=== PATIENT | female | born 2005 | race Caucasian/White ===

== ENCOUNTER 2023-07-08 13:39 | Emergency (ER) | payer OTHER ==
[2023-07-08 14:10] VITALS: RESP 18; TEMP 96.6
[2023-07-08] MEDS ORDERED: Reglan 10 MG/2 ML IV ONE (14:13)
[2023-07-08] MEDS ORDERED: BENADRYL 50 MG/ML IV ONE (14:13)
[2023-07-08] MEDS ORDERED: Sodium Chloride 0.9% 1000 ML 1,000 ML IV STA (14:13)
[2023-07-08] MEDS ORDERED: TORAdol 30 mg Injection IV ONE (14:13)
[2023-07-08] MEDS ORDERED: TYLENOL 325 MG PO ONE (14:13)
--- NOTE | 2023-07-08 14:19 | ERPHSYRPT ---
- History of Present Illness Time Seen by Provider: 07/08/23 13:44 Source: patient Exam Limitations: no limitations Patient Subjective Stated Complaint: pt states that she was getting a hiatta scan done today. 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 Patient reports she was getting HIDA scan earlier outpatient and started to have some upper abdominal pain followed by 3-4 episodes of nonprojectile, nonbilious vomiting. She started to feel dizzy lightheaded afterwards. She was walking out of the hospital and started to have moderate intensity sharp headache all over the especially on the left side. She does have history of migraines and had a few episodes similar to this in the past as well. She denies any focal numbness tingling or weakness but does report feeling transient numbness on the left side of the face earlier which is improved now. No difficulty speech or visual disturbance reported. Headache is more with bright light and better with being in a dark room. Denies any neck pain, fever or chills/sick contact. Allergies/Adverse Reactions: No Known Drug Allergies Allergy (Unverified 07/08/23 13:52) Home Medications: Levothyroxine Sodium 150 mcg PO DAILY 07/08/23 [History] Hx Tetanus, Diphtheria Vaccination/Date Given: Yes Hx Influenza Vaccination/Date Given: Yes Hx Pneumococcal Vaccination/Date Given: No Travel Risk - International Travel Have you traveled outside of the country in past 3 weeks: No - Coronavirus Screening Are you exhibiting any of the following symptoms?: No Close contact with a COVID-19 positive Pt in past 14-21 Days: No - Vaccine Status Have you recieved a Covid-19 vaccination: Yes 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 - Vaccination Dates Dates if Unknown: 2020 - Review of Systems Constitutional: Fatigue, Weakness Eyes: No Symptoms Ears, Nose, & Throat: No Symptoms Respiratory: No Symptoms Cardiac: No Symptoms Abdominal/Gastrointestinal: Abdominal Pain, Nausea, Vomiting Genitourinary Symptoms: No Symptoms Musculoskeletal: No Symptoms Skin: No Symptoms Neurological: Headache Endocrine: No Symptoms Hematologic/Lymphatic: No Symptoms - Past Medical History Pertinent Past Medical History: Yes Neurological History: No Pertinent History ENT History: No Pertinent History Cardiac History: No Pertinent History Respiratory History: Asthma Endocrine Medical History: Hypothyroidism Musculoskeletal History: No Pertinent History GI Medical History: No Pertinent History History: No Pertinent History Psycho-Social History: No Pertinent History Female Reproductive Disorders: No Pertinent History - Past Surgical History Past Surgical History: Yes Musculoskeletal: Other - Social History Smoking Status: Never smoker Exposure to second hand smoke: No Drug Use: none Patient Lives Alone: Yes - Female History Hx Now: (unkn) - Nursing Vital Signs Nursing Vital Signs: Initial Vital Signs Temperature 96.6 F 07/08/23 13:54 Pulse Rate 71 07/08/23 13:54 Respiratory Rate 18 07/08/23 13:54 Blood Pressure 120/77 07/08/23 13:54 O2 Sat by Pulse Oximetry 100 07/08/23 13:54 Pain Scale Pain Intensity 6 - Physical Exam General Appearance: no apparent distress, alert Eye Exam: PERRL/EOMI Ears, Nose, Throat Exam: normal ENT inspection Neck Exam: normal inspection, non-tender, supple, full range of motion Respiratory Exam: normal breath sounds, lungs clear Cardiovascular Exam: regular rate/rhythm, normal heart sounds Gastrointestinal/Abdominal Exam: soft, normal bowel sounds, No tenderness Extremity Exam: normal inspection, normal range of motion Mental Status Exam: alert, oriented x 3, 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 Exam: normal hearing, normal speech, PERRL Coordination/Gait Exam: normal finger to nose Motor/Sensory Exam: no motor deficit, no sensory deficit, no pronator drift, negative Babinski's sign DTR Exam: bicep (R): 2+, bicep (L): 2+, knee (R): 2+, knee (L): 2+ Skin Exam: normal color SpO2 Interpretation: normal SpO2: 100 O2 Delivery: Room Air Ordered Tests: Active Orders 24 hr Category Date Time Status IV Insertion STAT Care 07/08/23 14:13 Active HEAD WITHOUT CONTRAST [CT] Stat Exams 07/08/23 14:14 Completed CBC W DIFF Stat Lab 07/08/23 14:25 Completed CMP Stat Lab 07/08/23 14:25 Completed CULTURE,URINE Stat Lab 07/08/23 15:59 Received HCG QUALITATIVE, SERUM Stat Lab 07/08/23 14:25 Completed LIPASE Stat Lab 07/08/23 14:25 Completed UA W/RFX UR CULTURE Stat Lab 07/08/23 15:59 Completed Medication Summary Discontinued Medications Generic Name Dose Route Start Last Admin Trade Name Frank PRN Reason Stop Dose Admin Acetaminophen 975 mg 07/08/23 14:13 07/08/23 14:43 Acetaminophen 325 Mg Tablet PO 07/08/23 14:14 975 mg STAT ONE Administration Acetaminophen Confirm 07/08/23 14:39 Acetaminophen 325 Mg Tablet Administered 07/08/23 14:40 Dose 975 mg .ROUTE .STK-MED ONE Acetaminophen Confirm 07/08/23 14:48 Acetaminophen 325 Mg Tablet Administered 07/08/23 14:49 Dose 975 mg .ROUTE .STK-MED ONE Cephalexin HCl 500 mg 07/08/23 16:45 Cephalexin Mh500 Mg Capsule PO 07/08/23 16:46 STAT ONE Cephalexin HCl Confirm 07/08/23 16:52 Cephalexin Mh500 Mg Capsule Administered 07/08/23 16:53 Dose 500 mg .ROUTE .STK-MED ONE Diphenhydramine HCl 25 mg 07/08/23 14:13 07/08/23 14:43 Diphenhydramine Hcl 50 Mg/Ml Vial IV 07/08/23 14:14 25 mg STAT ONE Administration Diphenhydramine HCl Confirm 07/08/23 14:38 Diphenhydramine Hcl 50 Mg/Ml Vial Administered 07/08/23 14:39 Dose 50 mg .ROUTE .STK-MED ONE Sodium Chloride 1,000 mls @ 999 mls/hr 07/08/23 14:13 07/08/23 15:45 Sodium Chloride 0.9% 1000 Ml IV 07/08/23 15:13 Infused .Q1H1M STA Infusion Sodium Chloride Confirm 07/08/23 14:39 Sodium Chloride 0.9% 1000 Ml Administered 07/08/23 14:40 Dose 1,000 mls @ ud .ROUTE .STK-MED ONE Ketorolac Tromethamine 30 mg 07/08/23 14:13 07/08/23 14:43 Ketorolac Tromethamine 30 Mg/Ml Inj IV 07/08/23 14:14 30 mg STAT ONE Administration Ketorolac Tromethamine Confirm 07/08/23 14:38 Ketorolac Tromethamine 30 Mg/Ml Inj Administered 07/08/23 14:39 Dose 30 mg .ROUTE .STK-MED ONE Metoclopramide HCl 10 mg 07/08/23 14:13 07/08/23 14:43 Metoclopramide Hcl 10 Mg/2 Ml Vial IV 07/08/23 14:14 10 mg STAT ONE Administration Metoclopramide HCl Confirm 07/08/23 14:39 Metoclopramide Hcl 10 Mg/2 Ml Vial Administered 07/08/23 14:40 Dose 10 mg .ROUTE .STK-MED ONE Lab/Rad Data: Laboratory Result Diagrams 07/08/23 14:25 07/08/23 14:25 Laboratory Results 07/08/23 07/08/23 07/08/23 Range/Units 15:59 14:25 14:25 WBC (4.0-10.5) x10^3/uL RBC (4.1-5.4) x10^6/uL Hgb (12.0-16.0) g/dL Hct (35-47) % MCV (78-100) fL MCH (26-32) pg MCHC (32-36) g/dL RDW (11.5-14.0) % Plt Count (150-450) x10^3/uL MPV (7.5-11.0) fL Gran % (36.0-66.0) % Immature Gran % (Auto) (0.00-0.4) % Nucleat RBC Rel Count (0.00-0.1) % Eos # (Auto) (0-0.5) x10^3/uL Immature Gran # (Auto) (0.00-0.03) x10^3u/L Absolute Lymphs (auto) (1.0-4.6) x10^3/uL Absolute Monos (auto) (0.0-1.3) x10^3/uL Absolute Nucleated RBC (0.00-0.01) x10^3u/L Lymphocytes % (24.0-44.0) % Monocytes % (0.0-12.0) % Eosinophils % (0.00-5.0) % Basophils % (0.0-0.4) % Absolute Granulocytes (1.4-6.9) x10^3/uL Basophils # (0-0.4) x10^3/uL Sodium 137 (137-145) mmol/L Potassium 3.8 (3.5-5.1) mmol/L Chloride 107 (98-107) mmol/L Carbon Dioxide 24 (22-30) mmol/L Anion Gap 8.7 (5-15) MEQ/L BUN 10 (7-17) mg/dL Creatinine 0.67 (0.52-1.04) mg/dL Estimated GFR 128.2 ML/MIN Glucose 95 (74-106) mg/dL Calcium 8.8 (8.4-10.2) mg/dL Total Bilirubin 0.50 (0.2-1.3) mg/dL AST 62 H (14-36) U/L ALT 37 H (0-35) U/L Alkaline Phosphatase 54 (38-126) U/L Serum Total Protein 7.5 (6.3-8.2) g/dL Albumin 4.0 (3.5-5.0) g/dL Lipase 56 (23-300) U/L Serum HCG, Qual NEGATIVE (NEGATIVE) Urine Color Yellow (Yellow) Urine Appearance Clear (Clear) Urine pH 6.0 (4.6-8.0) Ur Specific [place] 1.020 (1.005-1.030) Urine Protein Negative (Negative) Urine Glucose (UA) Negative (Negative) mg/dL Urine Ketones Trace A (Negative) Urine Blood Large A (Negative) Urine Nitrite Negative (Negative) Urine Bilirubin Negative (Negative) Urine Urobilinogen 0.2 (0.2) mg/dL Ur Leukocyte Esterase Trace A (Negative) U Hyaline Cast (Auto) NONE SEEN (0-2) /LPF Urine Microscopic RBC >100 A (0-5) /HPF Urine Microscopic WBC 6-10 A (0-5) /HPF Ur Epithelial Cells Rare (None Seen) /HPF Urine Bacteria None Seen (None Seen) /HPF Urine Culture Reflexed YES (NO) 07/08/23 Range/Units 14:25 WBC 7.0 (4.0-10.5) x10^3/uL RBC 3.95 L (4.1-5.4) x10^6/uL Hgb 9.2 L (12.0-16.0) g/dL Hct 31.2 L (35-47) % MCV 79.0 (78-100) fL MCH 23.3 L (26-32) pg MCHC 29.5 L (32-36) g/dL RDW 16.5 H (11.5-14.0) % Plt Count 283 (150-450) x10^3/uL MPV 10.1 (7.5-11.0) fL Gran % 78.0 H (36.0-66.0) % Immature Gran % (Auto) 0.1 (0.00-0.4) % Nucleat RBC Rel Count 0.0 (0.00-0.1) % Eos # (Auto) 0.04 (0-0.5) x10^3/uL Immature Gran # (Auto) 0.01 (0.00-0.03) x10^3u/L Absolute Lymphs (auto) 1.12 (1.0-4.6) x10^3/uL Absolute Monos (auto) 0.34 (0.0-1.3) x10^3/uL Absolute Nucleated RBC 0.00 (0.00-0.01) x10^3u/L Lymphocytes % 16.0 L (24.0-44.0) % Monocytes % 4.9 (0.0-12.0) % Eosinophils % 0.6 (0.00-5.0) % Basophils % 0.4 (0.0-0.4) % Absolute Granulocytes 5.47 (1.4-6.9) x10^3/uL Basophils # 0.03 (0-0.4) x10^3/uL Sodium (137-145) mmol/L Potassium (3.5-5.1) mmol/L Chloride (98-107) mmol/L Carbon Dioxide (22-30) mmol/L Anion Gap (5-15) MEQ/L BUN (7-17) mg/dL Creatinine (0.52-1.04) mg/dL Estimated GFR ML/MIN Glucose (74-106) mg/dL Calcium (8.4-10.2) mg/dL Total Bilirubin (0.2-1.3) mg/dL AST (14-36) U/L ALT (0-35) U/L Alkaline Phosphatase (38-126) U/L Serum Total Protein (6.3-8.2) g/dL Albumin (3.5-5.0) g/dL Lipase (23-300) U/L Serum HCG, Qual (NEGATIVE) Urine Color (Yellow) Urine Appearance (Clear) Urine pH (4.6-8.0) Ur Specific [place] (1.005-1.030) Urine Protein (Negative) Urine Glucose (UA) (Negative) mg/dL Urine Ketones (Negative) Urine Blood (Negative) Urine Nitrite (Negative) Urine Bilirubin (Negative) Urine Urobilinogen (0.2) mg/dL Ur Leukocyte Esterase (Negative) U Hyaline Cast (Auto) (0-2) /LPF Urine Microscopic RBC (0-5) /HPF Urine Microscopic WBC (0-5) /HPF Ur Epithelial Cells (None Seen) /HPF Urine Bacteria (None Seen) /HPF Urine Culture Reflexed (NO) - Progress Progress: improved, re-examined Air Movement: good Progress Note: 07/08/23 16:54 18 years old is evaluated for headache with dizziness and nausea vomiting after she was getting HIDA scan outpatient. Neuroexam remained nonfocal throughout stay in the ER. She is given migraine cocktail along with fluid bolus, on reevaluation her symptoms are completely resolved. CT head is obtained which is negative. Baseline workup showed chronic anemia with a hemoglobin of 9.2 which is a little worse than before it was 10. Mildly elevated liver enzymes and some element of UTI, started on Keflex. Patient does have history of migraine and this was probably migraine presentation triggered from HIDA scan related to dye ingestion. She is advised to follow-up with her primary care. This point I do not think she needs any other workup and is stable for discharge. 07/08/23 16:56 Blood Culture(s) Obtained: No Antibiotics given: No Counseled pt/family regarding: lab results, diagnosis, need for follow-up, rad results Medical Desision Making - Diagnostic Testing Diagnostic test were ordered, analyzed, and reviewed by me: Yes Radiological Interpretation: Reviewed by me - Risk of complications The pt has a mod risk of morbidity or mortality based on: Need for prescription drug management - Departure Departure Disposition: Home Clinical Impression: Migraine, UTI (urinary tract infection) Condition: Stable Critical Care Time: No Referrals: DOCTOR,NO FAMILY [Primary Care Provider] - Follow up with PCP 1 day Instructions: Headache, Adult (DC) Additional Instructions: Take Tylenol/ibuprofen as needed. Follow-up with your primary care for reevaluation. Return to ER for intractable headache/vomiting/fever chills etc. Prescriptions: Cephalexin Mh 500 mg [Keflex 500 mg] 500 mg PO TID #21 cap
[2023-07-08 14:33] LABS: Absolute Neutrophil Ct (ANC) 5.47 x10^3/uL (1.4-6.9); BASOPHIL % 0.4 % (0.0-0.4); Basophil (Absolute #) 0.03 x10^3/uL (0-0.4); Eosinophil % 0.6 % (0.00-5.0); Eosinophil (Absolute #) 0.04 x10^3/uL (0-0.5); Hematocrit 31.2 % (35-47); Hemoglobin 9.2 g/dL (12.0-16.0); IMMATURE GRAN # 0.01 x10^3u/L (0.00-0.03); IMMATURE GRAN % 0.1 % (0.00-0.4); Lymphocyte (Absolute #) 1.12 x10^3/uL (1.0-4.6); Mean Corpuscular Hemoglobin 23.3 pg (26-32); Mean Corpuscular Hgb Concent. 29.5 g/dL (32-36); Mean Platelet Volume 10.1 fL (7.5-11.0); Monocyte (Absolute #) 0.34 x10^3/uL (0.0-1.3); Monocytes % 4.9 % (0.0-12.0); Platelet Count 283 x10^3/uL (150-450); Red Blood Count 3.95 x10^6/uL (4.1-5.4); Red Cell Distribution Width 16.5 % (11.5-14.0)
[2023-07-08] MEDS ORDERED: BENADRYL 50 MG/ML ONE (14:38)
[2023-07-08] MEDS ORDERED: TORAdol 30 mg Injection ONE (14:38)
[2023-07-08] MEDS ORDERED: TYLENOL 325 MG ONE ×2 (14:39→14:48)
[2023-07-08] MEDS ORDERED: Reglan 10 MG/2 ML ONE (14:39)
[2023-07-08] MEDS ORDERED: Sodium Chloride 0.9% 1000 ML 1,000 ML ONE (14:39)
[2023-07-08 14:47] LABS: HCG SERUM TEST NEGATIVE (NEGATIVE)
[2023-07-08 14:48] LABS: ANION GAP 8.7 MEQ/L (5-15); BILIRUBIN,TOTAL 0.5 mg/dL (0.2-1.3); Calcium 8.8 mg/dL (8.4-10.2); Creatinine 1 0.67 mg/dL (0.52-1.04); EST GLOMERULAR FILTRATION RATE 128.2 ML/MIN; Potassium 3.8 mmol/L (3.5-5.1); Total Protein 7.5 g/dL (6.3-8.2)
--- NOTE | 2023-07-08 16:19 | XRAY ---
Indication: Headache. No known injury. Multiple contiguous axial images obtained through the head without contrast. Comparison: None Normal appearing brain parenchyma, ventricles, and bony calvarium. Visualized paranasal sinuses and mastoid air cells are clear. Impression: Normal CT head without contrast exam.
[2023-07-08 16:35] LABS: Appearance Clear (Clear); Bacteria None Seen /HPF (None Seen); Bilirubin Negative (Negative); Blood Large (Negative); Epithelial Cells Rare /HPF (None Seen); Glucose, Urine Negative (Negative); Hyaline Casts NONE SEEN /LPF (0-2); Ketones Trace (Negative); Leukocyte Esterase Trace (Negative); Nitrite Negative (Negative); Protein,Urine Dip Negative (Negative); RBC >100 /HPF (0-5); Urobilinogen 0.2 mg/dL (0.2)
[2023-07-08 16:38] LABS: ADD URINE CULTURE? YES (NO)
[2023-07-08] MEDS ORDERED: KEFLEX 500 MG PO ONE (16:45)
[2023-07-08] MEDS ORDERED: KEFLEX 500 MG ONE (16:52)
[2023-07-08 17:04] VITALS: BP 102/78; PULSE 71; O2SAT 99
== END 2023-07-08 17:10 | disposition home or self-care (01) ==
LOC: ED 13:39
DX: G43.909 Migraine, unspecified, not intractable, without status migrainosus (principal); N39.0 Urinary tract infection, site not specified; R42 Dizziness and giddiness; R11.2 Nausea with vomiting, unspecified; Z79.899 Other long term (current) drug therapy
CPT/HCPCS: 36000; 36415; 70450; 80053; 81001; 83690; 84703; 85025; 87086; 96374; 99284; J1200; J1885; A9270-GY